=== PATIENT | female | born 1965 | race Caucasian/White ===

== ENCOUNTER 2017-12-07 09:18 | Emergency (ER) | payer BC ==
[2017-12-07] MEDS: DIAZEPAM 5 MG TAB PO (10:27)
[2017-12-07] MEDS: DEXAMETHASONE 10 MG/ML 1 ML INJ IM (10:28)
[2017-12-07] MEDS: KETOROLAC 60 MG INJ IM (10:28)
[2017-12-07 11:03] LABS: URINE BLOOD (Dip) POC 1+ (NEGATIVE); URINE GLUCOSE (Dip) POC Negative (NEGATIVE); URINE KETONES (Dip) POC Negative (NEGATIVE); URINE LEUKOCYTE EST (Dip) POC 3+ (NEGATIVE); URINE NITRITE (Dip) POC Negative (NEGATIVE); URINE TOTAL PROTEIN POC Negative (NEGATIVE)
== END 2017-12-07 11:35 | disposition home or self-care (01) ==
LOC: FTE 09:18
DX: N39.0 Urinary tract infection, site not specified (principal); Z87.891 Personal history of nicotine dependence
CPT/HCPCS: 81003; 87086; 96372; 99284-25